=== PATIENT | female | born 1995 | race Two or more races ===

== ENCOUNTER 2021-03-01 12:54 | Inpatient (IN) | payer OTHER ==
[~2021-03-01] VITALS: Ht 7.6 cm; Wt 86.2 kg
[2021-03-01] MEDS ORDERED: PRENATAL CAPLE1 EAC1 PO (13:19)
[2021-03-01] MEDS ORDERED: IRON325 MG PO (13:20)
[2021-03-01] MEDS ORDERED: OCUVITE EYE HE1 EACH PO (13:21)
== END 2021-03-03 17:00 | disposition home or self-care (01) | DRG 805 ==
LOC: LDR 12:54 → OB/GYN 22:18
PROVIDERS: ADMIT Specialist; ATTEND Specialist
PROC: 10E0XZZ Delivery of Products of Conception, External Approach (ICD-10-PCS; principal; 2021-03-01)
PROC: 0W8NXZZ Division of Female Perineum, External Approach (ICD-10-PCS; 2021-03-01)
PROC: 4A1HXFZ Monitoring of Products of Conception, Cardiac Rhythm, External Approach (ICD-10-PCS; 2021-03-01)
DX: O98.52 Other viral diseases complicating childbirth (principal); U07.1 COVID-19; Z37.0 Single live birth; O99.824 Streptococcus B carrier state complicating childbirth; Z3A.38 38 weeks gestation of pregnancy